=== PATIENT | female | born 1935 | race Caucasian/White ===

== ENCOUNTER → 2017-03-02 | Outpatient (CLI) | payer MEDICARE, OTHER ==
[~2017-03-02] MED LIST: ATOR10TA64 PO; DABI150C PO; LOSA25TA34 PO; METO25TA6 PO
== END ==
LOC: WC.BC 15:11
DX: Z12.31 Encounter for screening mammogram for malignant neoplasm of breast (principal)
CPT/HCPCS: 77063; G0202